=== PATIENT | male | born 1940 | race Caucasian/White ===

== ENCOUNTER 2024-05-09 08:46 | Emergency (ER) | payer MEDICARE ==
[~2024-05-09] VITALS: Ht 172.7 cm; Wt 73.0 kg
[2024-05-09] MEDS ORDERED: ALBUTEROL/IPRATROPIUM 3 ML NEB ONE (08:52)
[2024-05-09] MEDS ORDERED: ALBUTEROL/IPRATROPIUM 3 ML NEB INH ONE (09:00)
[2024-05-09] MEDS ORDERED: methylPREDNISolone SOD SUCC 125 MG/2 ML VIAL IV ONE (09:00)
[2024-05-09 09:04] LABS: BASOPHILS 0.6 % (0-2); EOSINOPHILS 7.9 % (0-6); HEMATOCRIT 44.4 % (35.0-50.0); HEMOGLOBIN 15.4 g/dL (12.0-18.0); LYMPHOCYTES 19.2 % (24-44); MCH 31.9 (27-36); MCHC 34.6 g/dl (30-36); MONOCYTES 8.8 % (0-12); NEUTROPHILS 63.5 % (39-80); PLATELET COUNT 214 K/uL (140-440); RBC 4.83 M/ul (4.3-5.7); RDW 14.9 (10.5-15.0)
[2024-05-09] MEDS ORDERED: IPRAT-ALBUT 0.5-3 ML INH (09:20)
[2024-05-09] MEDS ORDERED: TRELEGY ELLIPT1 EACH INH (09:21)
[2024-05-09 09:27] LABS: ALBUMIN/GLOBULIN RATIO 0.67 (1.1-2.4); ANION GAP 12.2 (7-21); BILIRUBIN, TOTAL 0.7 ng/dL (0.2-1.0); BUN/CREATININE RATIO 14.28 (6.0-28.6); CALCIUM 8.7 mg/dL (8.5-10.1); CREATININE, SERUM 1.05 mg/dL (0.70-1.30); POTASSIUM 4.2 mmol/L (3.5-5.1); PROTEIN, TOTAL 7.5 g/dL (6.4-8.2)
[2024-05-09] MEDS ORDERED: DOXYCYCLINE HYCLATE 100 MG CAP PO ONE (10:00)
[2024-05-09] MEDS ORDERED: DOXYCYCLINE HY100 MG PO (10:06)
[2024-05-09] MEDS ORDERED: PREDNISONE20 MG PO (10:06)
[2024-05-09 10:26] VITALS: BP 105/59
--- NOTE | 2024-05-09 17:13 | EKG ---
[facility] [address] [facility] [place], [place] [address] Signed Normal sinus rhythm Normal ECG No previous ECGs available Confirmed by KENNETH KNOTT MD ([id number]) on 05/09/2024 5:13:17 PM Electronically Signed By: KENNETH KNOTT 05/09/24 1713 PATIENT NAME: HUSAM HUERTA BRANDIN Electrocardiogram DATE OF : 36 PHYSICIAN: KENNETH KNOTT REPORT #: [id number] REPORT IS CONFIDENTIAL AND NOT TO BE RELEASED WITHOUT AUTHORIZATION
[2024-05-31] MEDS ORDERED: ONDANSETRON ODT4 MG PO (13:33)
[2024-05-31] MEDS ORDERED: ZITHROMAX250 MG PO (16:07)
[2024-05-31] MEDS ORDERED: PREDNISONE20 MG PO (16:07)
== END 2024-05-09 10:27 | disposition home or self-care (01) ==
LOC: ED 08:46
PROVIDERS: Emergency Medicine
DX: J44.9 Chronic obstructive pulmonary disease, unspecified (principal); J84.9 Interstitial pulmonary disease, unspecified
CPT/HCPCS: 36415; 71045; 80053; 83880; 84484; 85025; 93005; 93010; 96374; 99285-25; J2919

== ENCOUNTER 2024-09-05 21:38 | Inpatient (IN) | payer OTHER, MEDICARE ==
[~2024-09-05] VITALS: Ht 172.7 cm; Wt 67.5 kg
[~2024-09-05 21:38] MED LIST: DOXYCYCLINE HY100 MG PO; IPRAT-ALBUT 0.5-3 ML INH; ONDANSETRON ODT4 MG PO; PREDNISONE20 MG PO; TRELEGY ELLIPT1 EACH INH; ZITHROMAX250 MG PO
[2024-09-05 22:00] LABS: PH, VENOUS 7.376 (7.31-7.41)
[2024-09-05] MEDS ORDERED: methylPREDNISolone SOD SUCC 125 MG/2 ML VIAL IV ONE (22:00)
[2024-09-05] MEDS ORDERED: ALBUTEROL/IPRATROPIUM 3 ML NEB INH ONE (22:00)
[2024-09-05] MEDS ORDERED: LACTATED RINGER'S 1,000 ML IV ONE (22:00)
[2024-09-05] MEDS ORDERED: PIPERACILLIN/TAZOBACTAM 3.375 GM in DEXTROSE 5% 100 ML IV ONE (22:00)
[2024-09-05 22:03] LABS: BASOPHILS 0.5 % (0-2); EOSINOPHILS 0.5 % (0-6); HEMATOCRIT 45.1 % (35.0-50.0); HEMOGLOBIN 15.1 g/dL (12.0-18.0); LYMPHOCYTES 6.8 % (24-44); MCH 30.7 (27-36); MCHC 33.4 g/dl (30-36); MONOCYTES 7.6 % (0-12); NEUTROPHILS 84.6 % (39-80); PLATELET COUNT 253 K/uL (140-440); RDW 13.7 (10.5-15.0)
[2024-09-05] MEDS ORDERED: DEXTROSE 5% 100 ML IV ONE (22:05)
[2024-09-05 22:24] LABS: ALBUMIN 3.7 g/dL (3.4-5.0); ALBUMIN/GLOBULIN RATIO 0.8 (1.1-2.4); ANION GAP 13.4 (7-21); BILIRUBIN, TOTAL 0.6 ng/dL (0.2-1.0); BUN/CREATININE RATIO 24.57 (6.0-28.6); CALCIUM 9.8 mg/dL (8.5-10.1); CREATININE, SERUM 1.18 mg/dL (0.70-1.30); POTASSIUM 4.4 mmol/L (3.5-5.1); PROTEIN, TOTAL 8.3 g/dL (6.4-8.2)
[2024-09-05 22:38] LABS: INFLUENZA B NAA NEGATIVE (NEGATIVE); RESPIRATORY SYNCYTIAL VIR NAA NEGATIVE (NEGATIVE)
[2024-09-06] VITALS (10 sets, daily range): BP systolic 100–107; BP diastolic 54–67
[2024-09-06] MEDS ORDERED: LACTATED RINGER'S 1,000 ML IV SCH (00:15)
[2024-09-06] MEDS ORDERED: ondansetron HCL 4 MG/2 ML VIAL IV PRN ×2 (00:15→11:00)
[2024-09-06] MEDS ORDERED: ACETAMINOPHEN 325 MG TAB PO PRN ×2 (00:15→11:00)
[2024-09-06] MEDS ORDERED: ALBUTEROL/IPRATROPIUM 3 ML NEB INH PRN (00:30)
[2024-09-06] MEDS ORDERED: methylPREDNISolone SOD SUCC 125 MG/2 ML VIAL IV SCH ×3 (02:00→21:00)
[2024-09-06 02:33] LABS: LACTIC ACID, BLOOD 1.4 mmol/L (0.4-2.0)
[2024-09-06 05:32] LABS: HEMOGLOBIN 13.4 g/dL (12.0-18.0); MCH 30.4 (27-36); MCHC 33.4 g/dl (30-36)
[2024-09-06 05:34] LABS: BASOPHILS 0.2 % (0-2); EOSINOPHILS 0.2 % (0-6); HEMATOCRIT 40.2 % (35.0-50.0); LYMPHOCYTES 5.6 % (24-44); MCV 91.2 fl (81-99); MONOCYTES 0.6 % (0-12); NEUTROPHILS 93.4 % (39-80); PLATELET COUNT 226 K/uL (140-440); RBC 4.41 M/ul (4.3-5.7); RDW 14.2 (10.5-15.0)
[2024-09-06 05:47] LABS: ALBUMIN 3.1 g/dL (3.4-5.0); ALBUMIN/GLOBULIN RATIO 0.76 (1.1-2.4); ANION GAP 7.2 (7-21); BILIRUBIN, TOTAL 0.7 ng/dL (0.2-1.0); BUN/CREATININE RATIO 19.82 (6.0-28.6); CALCIUM 9.3 mg/dL (8.5-10.1); CREATININE, SERUM 1.16 mg/dL (0.70-1.30); POTASSIUM 4.2 mmol/L (3.5-5.1); PROTEIN, TOTAL 7.2 g/dL (6.4-8.2)
[2024-09-06] MEDS ORDERED: CEFTRIAXONE/SODIUM CHLORIDE 2 GM/100 ML PIGGYBACK IV SCH (09:00)
[2024-09-06] MEDS ORDERED: AZITHROMYCIN 250 MG TAB PO SCH (09:00)
[2024-09-06] MEDS ORDERED: ONDANSETRON HCL4 MG PO (10:22)
[2024-09-06] MEDS ORDERED: PANTOPRAZOLE SODIUM 40 MG/10 ML VIAL IV SCH (10:52)
[2024-09-06] MEDS ORDERED: ENOXAPARIN SODIUM 40 MG/0.4 ML SYR SUB-Q SCH (10:52)
[2024-09-06] MEDS ORDERED: SODIUM CHLORIDE 0.9% 1,000 ML IV SCH (11:00)
[2024-09-06] MEDS ORDERED: bisacodyL 10 MG SUPP PR PRN (11:00)
[2024-09-06] MEDS ORDERED: GUAIFENESIN/DEXTROMETHORPHAN 5 ML SYRUP PO PRN (11:00)
[2024-09-06] MEDS ORDERED: PHARMACY RENAL DOSE ADJUSTMENT 1 DOSE MISC PO SCH (12:00)
[2024-09-06] MEDS ORDERED: ALBUTEROL/IPRATROPIUM 3 ML NEB INH SCH (14:00)
[2024-09-06] MEDS ORDERED: BUDESONIDE 0.5 MG/2 ML VIAL INH SCH (20:00)
[2024-09-06] MEDS ORDERED: MELATONIN 3 MG TAB PO PRN (21:00)
[2024-09-07] VITALS (10 sets, daily range): BP systolic 101–117; BP diastolic 57–85
[2024-09-07 05:31] LABS: BASOPHILS 0.1 % (0-2); HEMATOCRIT 35.5 % (35.0-50.0); HEMOGLOBIN 11.8 g/dL (12.0-18.0); LYMPHOCYTES 5.2 % (24-44); MCH 30.6 (27-36); MCHC 33.1 g/dl (30-36); MCV 92.2 fl (81-99); NEUTROPHILS 91.7 % (39-80); PLATELET COUNT 202 K/uL (140-440); RBC 3.85 M/ul (4.3-5.7); RDW 14.1 (10.5-15.0)
[2024-09-07 05:42] LABS: ANION GAP 13.3 (7-21); BUN/CREATININE RATIO 28.57 (6.0-28.6); CREATININE, SERUM 0.77 mg/dL (0.70-1.30); POTASSIUM 4.3 mmol/L (3.5-5.1)
[2024-09-07] MEDS ORDERED: PANTOPRAZOLE SODIUM 40 MG TABEC PO SCH (09:00)
[2024-09-07] MEDS ORDERED: methylPREDNISolone SOD SUCC 125 MG/2 ML VIAL IV SCH (21:00)
[2024-09-07] MEDS ORDERED: methylPREDNISolone SOD SUCC 500 MG in DEXTROSE 5% 100 ML IV SCH (21:00)
[2024-09-08] VITALS (12 sets, daily range): BP systolic 108–134; BP diastolic 59–78
[2024-09-08 05:42] LABS: ANION GAP 11.8 (7-21); BUN/CREATININE RATIO 22.22 (6.0-28.6); CALCIUM 8.8 mg/dL (8.5-10.1); CREATININE, SERUM 0.81 mg/dL (0.70-1.30); POTASSIUM 3.8 mmol/L (3.5-5.1)
--- NOTE | 2024-09-08 21:34 | EKG ---
[facility] [address] [facility] [place] [address] Signed Sinus tachycardia Possible Left atrial enlargement Borderline ECG When compared with ECG of 09-MAY-2024 08:54, Vent. rate has increased BY 43 BPM Confirmed by Adriel Weller MD ([id number]) on 09/08/2024 9:34:48 PM Electronically Signed By: ADRIEL WELLER DO [id number] PATIENT NAME: DEANNAHUSAM Electrocardiogram DATE OF : 36 PHYSICIAN: ADRIEL WELLER DO REPORT #: [id number] REPORT IS CONFIDENTIAL AND NOT TO BE RELEASED WITHOUT AUTHORIZATION
[2024-09-09] VITALS (10 sets, daily range): BP systolic 111–124; BP diastolic 63–77
[2024-09-09 05:50] LABS: BASOPHILS 0.4 % (0-2); HEMOGLOBIN 12.1 g/dL (12.0-18.0); LYMPHOCYTES 4.6 % (24-44); MCH 31.1 (27-36); MCHC 33.7 g/dl (30-36); MCV 92.3 fl (81-99); MONOCYTES 3.6 % (0-12); NEUTROPHILS 91.4 % (39-80); PLATELET COUNT 234 K/uL (140-440); RDW 14.1 (10.5-15.0)
[2024-09-09 06:04] LABS: ALBUMIN 2.7 g/dL (3.4-5.0); ALBUMIN/GLOBULIN RATIO 0.82 (1.1-2.4); ANION GAP 11.9 (7-21); BILIRUBIN, TOTAL 0.3 ng/dL (0.2-1.0); BUN/CREATININE RATIO 19.04 (6.0-28.6); CREATININE, SERUM 1.05 mg/dL (0.70-1.30); POTASSIUM 3.9 mmol/L (3.5-5.1)
[2024-09-09 07:19] LABS: PROCALCITONIN 0.35 ng/mL (())
[2024-09-09] MEDS ORDERED: methylPREDNISolone SOD SUCC 500 MG in DEXTROSE 5% 100 ML IV SCH (09:00)
[2024-09-10] VITALS (11 sets, daily range): BP systolic 116–128; BP diastolic 65–94
[2024-09-10] MEDS ORDERED: BENZONATATE 100 MG CAP PO PRN (05:45)
[2024-09-10 05:55] LABS: ANION GAP 8.9 (7-21); BUN/CREATININE RATIO 33.72 (6.0-28.6); CALCIUM 8.6 mg/dL (8.5-10.1); CREATININE, SERUM 0.86 mg/dL (0.70-1.30); POTASSIUM 3.9 mmol/L (3.5-5.1)
[2024-09-11] VITALS (10 sets, daily range): BP systolic 100–138; BP diastolic 63–81
[2024-09-11] MEDS ORDERED: FUROSEMIDE 40 MG/4 ML VIAL IV ONE (07:45)
[2024-09-11 13:29] LABS: ASPERGILLUS FUMIGATUS AB IGG 6.83 mcg/mL (<=99.99)
[2024-09-11] MEDS ORDERED: methylPREDNISolone SOD SUCC 125 MG/2 ML VIAL IV SCH (14:00)
[2024-09-12] VITALS (7 sets, daily range): BP systolic 105–120; BP diastolic 54–68
[2024-09-12 05:25] LABS: BASOPHILS 0.2 % (0-2); EOSINOPHILS 0.3 % (0-6); HEMATOCRIT 37.1 % (35.0-50.0); HEMOGLOBIN 12.6 g/dL (12.0-18.0); LYMPHOCYTES 5.3 % (24-44); MCH 31.1 (27-36); MCV 91.4 fl (81-99); MONOCYTES 3.8 % (0-12); NEUTROPHILS 90.4 % (39-80); PLATELET COUNT 155 K/uL (140-440); RBC 4.06 M/ul (4.3-5.7)
[2024-09-12 05:35] LABS: ANION GAP 8.8 (7-21); BUN/CREATININE RATIO 36.9 (6.0-28.6); CALCIUM 8.3 mg/dL (8.5-10.1); CREATININE, SERUM 0.84 mg/dL (0.70-1.30); MAGNESIUM 2.1 mg/dL (1.8-2.4); POTASSIUM 3.8 mmol/L (3.5-5.1)
[2024-09-12] MEDS ORDERED: methylPREDNISolone SOD SUCC 40 MG/ML VIAL IV SCH (07:00)
[2024-09-12] MEDS ORDERED: CLOTRIMAZOLE 10 MG TROC PO SCH (09:00)
[2024-09-12] MEDS ORDERED: ondansetron HCL 4 MG/2 ML VIAL IV PRN (10:00)
[2024-09-12] MEDS ORDERED: POLYETHYLENE GLYCOL 3350 1 PACKET PO ONE (10:00)
[2024-09-13] VITALS (7 sets, daily range): BP systolic 100–114; BP diastolic 56–69
[2024-09-13 05:40] LABS: BASOPHILS 0.1 % (0-2); HEMOGLOBIN 11.9 g/dL (12.0-18.0); LYMPHOCYTES 3.9 % (24-44); MCHC 33.9 g/dl (30-36); MCV 91.5 fl (81-99); MONOCYTES 5.3 % (0-12); NEUTROPHILS 90.7 % (39-80); PLATELET COUNT 173 K/uL (140-440); RBC 3.82 M/ul (4.3-5.7); RDW 13.9 (10.5-15.0)
[2024-09-13 05:44] LABS: ANION GAP 6.9 (7-21); CALCIUM 8.5 mg/dL (8.5-10.1); CREATININE, SERUM 0.82 mg/dL (0.70-1.30); MAGNESIUM 2.3 mg/dL (1.8-2.4); POTASSIUM 3.9 mmol/L (3.5-5.1)
[2024-09-13] MEDS ORDERED: POLYETHYLENE GLYCOL 3350 1 PACKET PO SCH (09:00)
[2024-09-13] MEDS ORDERED: SENNOSIDES/DOCUSATE 1 EA TAB PO SCH (09:00)
[2024-09-13] MEDS ORDERED: methylPREDNISolone SOD SUCC 40 MG/ML VIAL IV SCH (21:00)
[2024-09-14] VITALS (9 sets, daily range): BP systolic 101–133; BP diastolic 56–74
[2024-09-14] MEDS ORDERED: NYSTATIN 500,000 UNITS/5 ML CUP PO SCH (09:00)
[2024-09-14] MEDS ORDERED: methylPREDNISolone SOD SUCC 40 MG/ML VIAL IV SCH (09:00)
[2024-09-14] MEDS ORDERED: NYSTATIN100000 UN1 PO (09:58)
[2024-09-14] MEDS ORDERED: PREDNISONE10 MG PO (10:02)
[2024-09-15 05:25] VITALS: BP 121/68
[2024-09-15 05:36] VITALS: BP 121/68
[2024-09-15 09:15] VITALS: BP 110/63
[2024-09-15 10:00] VITALS: BP 110/63
[2024-09-15 13:39] VITALS: BP 108/65
== END 2024-09-15 14:02 | DRG 196 ==
LOC: ED 21:38 → MS 09-06 00:16
PROVIDERS: Internal Medicine; Student in an Organized Health Care Education/Training Program; ADMIT Student in an Organized Health Care Education/Training Program; ATTEND Student in an Organized Health Care Education/Training Program
DX: J84.10 Pulmonary fibrosis, unspecified (principal); J96.21 Acute and chronic respiratory failure with hypoxia; J44.1 Chronic obstructive pulmonary disease with (acute) exacerbation; E87.20 Acidosis, unspecified; G93.40 Encephalopathy, unspecified; Z66 Do not resuscitate; B37.9 Candidiasis, unspecified; Z79.51 Long term (current) use of inhaled steroids; Z79.899 Other long term (current) drug therapy; F03.90 Unspecified dementia, unspecified severity, without behavioral disturbance, psychotic disturbance, mood disturbance, and anxiety; Z98.890 Other specified postprocedural states; Z99.81 Dependence on supplemental oxygen
CPT/HCPCS: 36415; 71045; 71046; 71250; 80048; 80053; 82803; 83605; 83735; 83880; 84484; 85025; 86606; 86713; 87040; 87502; 93005; 93010; 94640; 94667; 94668; 94762; 96365; 96375; 97110; 97116; 97162; 97166; 97530; 97535; 99285-25; A9270; J0696; J1650; J1940; J2405; J2470; J2543; J2919; J7030; J7121; U0002